=== PATIENT | female | born 1995 | race African-American/Black ===

== ENCOUNTER 2018-10-25 11:50 | Emergency (ER) | payer OTHER ==
[~2018-10-25] VITALS: Ht 162.6 cm; Wt 90.3 kg
[~2018-10-25 11:50] MED LIST: COLACE100 MG PO; IBUPROFEN 800800 M1; MOBIC15 MG PO; NOHOMEMEDICATIONS
[2018-10-25] MEDS ORDERED: PRENATAL PO (12:01)
[2018-10-25 13:18] VITALS: BP 104/61
== END 2018-10-25 13:18 | disposition home or self-care (01) ==
LOC: ER 11:50
DX: O99.89 Other specified diseases and conditions complicating pregnancy, childbirth and the puerperium (principal); M79.604 Pain in right leg; Z3A.34 34 weeks gestation of pregnancy